=== PATIENT | male | born 1950 | race African-American/Black ===

== ENCOUNTER 2018-08-03 05:59 | Day surgery (SDC) | payer MEDICARE, BC ==
--- NOTE | 2018-07-29 15:28 | HP ---
HISTORY OF PRESENT ILLNESS: Armond Hernandez is a 67-year-old black male who lives in [facility]. He is followed by Dr. Rogers and Dr. Sanchez. The patient on 06/14/2018 had labs with BUN 59, crea tinine 6.21, GFR 10, potassium 5.0. He has been suffering anorexia, lethargy, malaise. He has been advised to initiate dialysis. He wants to see me regarding peritoneal dialysis. He has met with the peritoneal dialysis nurse and is interested in peritoneal dialysis. Plan is to repair his umbilical hernia possibly with mesh, perform laparoscopic peritoneal dialysis catheter placement and left arm AV fistula as an outpatient. He has a fishing trip planned and we will plan this after that trip. Ra calix understands the risks and benefits of surgery and consents. ALLERGIES: Adverse reactions to NAMENDA, mental status changes; DEMEROL, hallucinations; FLU SHOT ca uses swelling on the left side of his body. TOBACCO: None. ALCOHOL: None. MEDICATIONS: Metoprolol 50 mg a day extended release, vitamin B complex, complex vitamins, eye drops , Zetia 10 mg a day, Plaquenil 200 mg a day, iron 325 mg a day, Uloric 40 mg daily, Flomax 0.4 mg a d ay, tramadol p.r.n. pain, Lasix 40 mg twice a day, Breo Ellipta inhaler, fluticasone inhaler, folic a shweta, vitamin B12. PAST SURGICAL HISTORY: Noncontributory. PAST MEDICAL HISTORY: Diabetes, diet controlled, does not take any medications. Hypertension, anemi a. He has a renal cell carcinoma of left, small tumor followed by Urology at [facility]. No resect ion planned immediately. Chronic kidney disease followed by Dr. Rogers. He had a nuclear cardiac stress test with Dr. Brady in January of this year that was normal. REVIEW OF SYSTEMS: Ten point noncontributory. FAMILY HISTORY: Otherwise noncontributory. PHYSICAL EXAMINATION: VITAL SIGNS: 271 pounds, 73 inches, 195/84, 59 heart rate, 99 degrees. HEENT: Unremarkable. LUNGS: Clear to auscultation. CARDIAC: Regular rate and rhythm without murmur or gallop. ABDOMEN: Soft, protuberant, obese. Umbilical hernia, reducible. Diastasis recti. On standing, mag ins inspected and there are no hernias on Valsalva. Testicles are normal. EXTREMITIES: Unremarkable. Palpable radial pulses. Scar, volar medial left forearm from a childhoo d injury procedure. ASSESSMENT AND PLAN: 1. Chronic kidney disease, approaching need for dialysis. We will plan laparoscopic peritoneal dial ysis catheter placement, mesh repair of umbilical hernia open and left arm arteriovenous fistula. He has not had vein mapping. We will explore his veins, perform a fistula if necessary, but we will no t place a prosthetic graft. Risk of operation including infection, bleeding, reoperation and thrombo sis of the fissure discussed. Mechanical problems of the PD catheter discussed. He consents. 2. Chronic kidney disease. 3. Rheumatoid arthritis. 4. Diabetes, diet controlled. 5. Hypertension.
[2018-08-02 08:55] VITALS: BMI 36.6
[2018-08-03 06:50] LABS: #Eosinphils 0.1 thou/uL (0.0-0.7); #Lymphocytes 0.7 thou/uL (1.20-3.40); #Monocytes 0.5 thou/uL (0.11-0.59); #Neutrophils 2.3 thou/uL (1.40-6.50); %Basophils 0.4 % (0.0-1.0); %Eosinophils 1.8 % (0.0-10.0); %Lymphocytes 19.4 % (21.0-51.0); %Monocytes 13.1 % (0.0-10.0); %Neutrophils 65.3 % (42.0-75.0); Hemoglobin 10.3 g/dL (14.0-18.0); Mean Corpuscular HGB CONC 30.1 g/dL (32.0-36.0); Mean Corpuscular Hemoglobin 27.3 pg (27.0-31.0); Mean Corpuscular Volume 90.7 fL (78.0-98.0); Mean Platelet Volume 10.5 fL (7.4-10.4); Platelet Count 106 thou/uL (130-400); RBC Distribution Width 14.4 % (11.5-14.5); Red Blood Cell (RBC) Count 3.76 mill/uL (4.70-6.10); White Blood Cell (WBC) Count 3.6 thou/uL (4.8-10.8)
[2018-08-03] MEDS ORDERED: CEFAZOLIN 2 GM/50 ML BAG ONE (07:03)
[2018-08-03 07:04] LABS: Anion Gap 14 mmol/L (10-20); BUN (Urea Nitrogen) 74 mg/dL (8.4-25.7); Calc. Creatinine Clearance 17 mL/min (70-130); Calcium 7.9 mg/dL (7.8-10.44); Carbon Dioxide 20 mmol/L (23-31); Chloride 112 mmol/L (98-107); Estimated GFR-MDRD 10; Glucose 109 mg/dL (80-115); PLT Morphology Comment Appears Decreased; Potassium 4.7 mmol/L (3.5-5.1); RBC Morphology Normal; Sodium 141 mmol/L (136-145)
[2018-08-03] MEDS ORDERED: Bupivacaine HCl 0.5%/Epinephrine 1:200,000/PF 30 ml Vial ONE (07:04)
[2018-08-03] MEDS ORDERED: Lidocaine 2% PF 5 ML VIAL ONE (07:04)
[2018-08-03] MEDS ORDERED: Heparin 5,000 UNITS/ML VIAL ONE (07:04)
[2018-08-03] MEDS ORDERED: Heparin 10,000 UNITS/1 ML VIAL ONE (07:06)
[2018-08-03] MEDS ORDERED: Protamine Sulfate 50 MG/5 ML VIAL ONE (07:24)
[2018-08-03] MEDS ORDERED: Bupivacaine/Epinephrine 0.25% 30 ML VIAL ONE (07:24)
[2018-08-03] MEDS ORDERED: Fentanyl 100 MCG/2 ML VIAL ONE (07:53)
--- NOTE | 2018-08-03 10:09 | OP ---
DATE OF PROCEDURE: 08/03/2018 PREOPERATIVE DIAGNOSES: Chronic kidney disease, umbilical hernia. POSTOPERATIVE DIAGNOSES: Chronic kidney disease, umbilical hernia. PROCEDURES: Laparoscopic peritoneal dialysis catheter, double cuffed pigtail. Laparoscopic sling smith ture placed to keep the catheter in the pelvis. Umbilical hernia repair with mesh. PVP 4 cm. Left Radhika fistula, 4 mm coronary dilator cephalic vein outflow. Good radial artery caliber. SURGEON: Dr. Oskar Carmichael ANESTHESIA: General. Local 0.25% Marcaine with epinephrine 60 mL mixed with Xylocaine, 10 mL. PROCEDURE: The patient was taken to the operating room where under general anesthesia, abdomen, left upper extremity was prepped with ChloraPrep, draped in routine fashion. Bilateral far lateral subco stal incision made. Pneumoperitoneum to 15 mmHg obtained with the Veress needle placing with a 5 por t and laparoscope inserted. Contralateral subcostal incision made and a 5 port placed under laparosc opic visualization. At the planned exit site, slightly above the umbilical level a stab incision was made and a counter incision made periumbilical above this, an 8 mm port directed in the subcutaneous tissue directed caudally in the subcutaneous tissues into the rectus sheath visualized laparoscopica lly, penetrating the peritoneal cavity caudally, inserting the double cuffed pigtail peritoneal dialy sis catheter in the internal cuff placed in the rectus sheath. While grasping the catheter and the p ort removed. Using the [place] dissector placed through the planned exit site slightly inferior and laterally, the [place] grasper was directed to the counter incision, grasping the peritoneal dialys is catheter and placed external cuff beneath the skin exit site. Subcutaneous tissues approximated w ith 3-0 Monocryl, skin with subdermal 4-0 Monocryl and DermaGlue applied. Biopatch applied. ____ pl aced on the catheter and it was flushed with heparinized saline solution 1000 units per mL, 10 mL and a cap placed. A sling suture was placed to keep the peritoneal dialysis catheter directed into the pelvis. Irrigant and pneumoperitoneum evacuated. Numerous cysts on the liver were noted and video p hotographs used. Pneumoperitoneum evacuated. All this instruments removed and all skin incisions ap proximated with interrupted subdermal 4-0 Vicryl. DermaGlue and sterile dressings applied. Incision was made infraumbilical, carried down the skin and subcutaneous tissue and umbilical hernia defect noted approximately 2.5 cm. The fascial defect dissected free. PVP mesh placed in the preper itoneal space and the fascial defect closed [id number] with interrupted sutures of 0 PDS pop-off s incorporating mesh into the approximation of the fascia closing the subcutaneous tissue, 3-0 Monocr yl, skin with subdermal 4-0 Monocryl and DermaGlue applied. Incision was made in left wrist, carried down skin and subcutaneous tissue longitudinally between th e radial artery and cephalic vein. The patient was given 6000 units heparin intravenously. After ad equate circulation time, the radial artery clamped proximally and distally. Longitudinal arteriotomy made sharply and elongated with Young scissors for a 2.5 cm anastomosis between the end cephalic vei n which had been dissected free and interrogated with coronary dilators without obstruction throughou t its length, passing coronary dilators from a 2 mm to a 4 mm dilator and flushed with heparinized sa line solution. Once anastomosis was completed with 6-0 Prolene, vascular clamps were released and th ere was excellent Doppler signal in the outflow. Good hemostasis noted. The patient was given 50 mg of protamine intravenously by Anesthesia. Subcutaneous tissues approximated with 3-0 Monocryl, skin with subdermal 4-0 Monocryl and DermaGlue applied.
[2018-08-03] MEDS ORDERED: HYDROcodone/Acetaminophen 5/325 mg Tablet ONE (12:06)
[2018-08-03] MEDS ORDERED: Lidocaine 1% PF 5 ML VIAL ONE (16:32)
[2018-08-03] MEDS ORDERED: Ondansetron PF 4 MG/2 ML Vial ONE (16:32)
[2018-08-03] MEDS ORDERED: PROPOFOL 200 MG/20 ML VIAL ONE (16:32)
[2018-08-03] MEDS ORDERED: Glycopyrrolate 0.2 MG/ML 5 ML SYRINGE ONE (16:32)
--- NOTE | 2018-08-06 10:27 | EKG ---
Test Reason : PREOP Blood Pressure : / mmHG Vent. Rate : 061 BPM Atrial Rate : 061 BPM P-R Int : 190 ms QRS Dur : 086 ms QT Int : 462 ms P-R-T Axes : 041 086 078 degrees QTc Int : 465 ms Normal sinus rhythm Normal ECG Confirmed by DR. Zeny MARS ([id number]) on 08/06/2018 10:27:30 AM Referred By: ALFREDO Confirmed By:DR. Zeny MARS
== END 2018-08-03 16:00 | disposition home or self-care (01) ==
LOC: SDC 05:59
PROVIDERS: ATTEND Specialist
PROC: 0WUF0JZ Supplement Abdominal Wall with Synthetic Substitute, Open Approach (ICD-10-PCS; principal; 2018-08-03)
PROC: 031C0ZF Bypass Left Radial Artery to Lower Arm Vein, Open Approach (ICD-10-PCS; 2018-08-03)
PROC: 0WHG43Z Insertion of Infusion Device into Peritoneal Cavity, Percutaneous Endoscopic Approach (ICD-10-PCS; 2018-08-03)
DX: I12.9 Hypertensive chronic kidney disease with stage 1 through stage 4 chronic kidney disease, or unspecified chronic kidney disease (principal); E11.22 Type 2 diabetes mellitus with diabetic chronic kidney disease; N18.9 Chronic kidney disease, unspecified; K42.9 Umbilical hernia without obstruction or gangrene; Z88.5 Allergy status to narcotic agent; Z88.8 Allergy status to other drugs, medicaments and biological substances; Z88.7 Allergy status to serum and vaccine; Z79.899 Other long term (current) drug therapy; M06.9 Rheumatoid arthritis, unspecified; Z79.82 Long term (current) use of aspirin; E66.9 Obesity, unspecified; Z68.36 Body mass index [BMI] 36.0-36.9, adult
CPT/HCPCS: 36415; 80048; 85025; 93005; 93010; J0131; J0670; J1644; J2001; J2405; J2704; J2720; J3010

== ENCOUNTER 2018-08-18 09:14 | Outpatient (CLI) | payer MEDICARE, BC ==
--- NOTE | 2018-08-18 09:54 | RAD ---
TWO VIEW CHEST: COMPARISON: 12/17/2017. INDICATION: Chronic kidney disease. FINDINGS: The cardiac silhouette remains enlarged with adjacent patchy density of the mid left lung zone. Ther e is mild vascular prominence. Vascular calcification is again seen. IMPRESSION: 1. Persistence of enlargement of cardiac silhouette with adjacent patchy parenchymal density of the left mid lung zone. 2. Evidence of edema. POS: TPC
== END 2018-08-18 09:15 | disposition home or self-care (01) ==
LOC: BICRAD 09:14
PROVIDERS: ATTEND Internal Medicine Nephrology
DX: N18.4 Chronic kidney disease, stage 4 (severe) (principal); J98.4 Other disorders of lung; R60.9 Edema, unspecified
CPT/HCPCS: 71046

== ENCOUNTER 2018-10-04 06:14 | Day surgery (SDC) | payer MEDICARE, BC ==
[2018-10-03 13:10] VITALS: BMI 34.5
--- NOTE | 2018-10-03 21:13 | HP ---
HISTORY OF PRESENT ILLNESS: This is a 68-year-old male, referred to me for a colonoscopy for colon cancer. The patient also had a positive Cologuard testing and also history of colonoscopy 5 years ago. At present time, no specific symptoms. No abdominal pain. No hematochezia or melena. The patient already had a colonoscopy for colon cancer screening and also had a history of colon polyps. MEDICAL ILLNESSES: 1. Hypertension. 2. Diabetes. 3. Hyperlipidemia. 4. Obesity. 5. Chronic kidney disease, on peritoneal dialysis. 6. History of left renal cell carcinoma, being seen at the [facility] off and on. ALLERGIES: 1. DEMEROL. 2. NAMENDA. 3. PNEUMOCOCCAL VACCINE. PHYSICAL EXAMINATION: VITAL SIGNS: Pulse is 70, blood pressure 130/80. HEENT: Conjunctivae clear. CARDIOVASCULAR SYSTEM: First and second heart sounds heard. LUNGS: Clear to auscultation. ABDOMEN: Soft. No organomegaly. No tenderness. No masses. Bowel sounds normal. ADMITTING DIAGNOSES: Colon cancer screening, history of colon polyps. Job ID: [id number] [facility]
[2018-10-04 07:45] LABS: Anion Gap 15 mmol/L (10-20); BUN (Urea Nitrogen) 57 mg/dL (8.4-25.7); Calc. Creatinine Clearance 14 mL/min (70-130); Calcium 7.7 mg/dL (7.8-10.44); Carbon Dioxide 30 mmol/L (23-31); Chloride 101 mmol/L (98-107); Estimated GFR-MDRD 8; Glucose 126 mg/dL (80-115); Sodium 143 mmol/L (136-145)
[2018-10-04 07:59] LABS: Potassium 2.9 mmol/L (3.5-5.1)
[2018-10-04] MEDS ORDERED: PROPOFOL 200 MG/20 ML VIAL ONE (13:47)
--- NOTE | 2018-10-04 16:38 | OP ---
DATE OF PROCEDURE: 10/04/2018 PROCEDURE PERFORMED: Colonoscopy. PREOPERATIVE DIAGNOSIS: A 68-year-old male with positive Cologuard, underwent colonoscopy for colon cancer screening. The patient also had previous colonoscopy, polypectomy many years ago. POSTOPERATIVE DIAGNOSES: 1. Large hemorrhoids. 2. Very redundant colon, and the exam was technically difficult because of the redundant colon. DESCRIPTION OF PROCEDURE: The patient was placed on his left lateral position and was given sedation by Anesthesia Department. A rectal exam was done. The scope was advanced into the rectum. The patient had hemorrhoids. No other lesions felt. A Pentax video colonoscope was introduced into the rectum and advanced all the way into the cecum. In the ileocecal area, cecum, ascending colon, no pathology seen. In the hepatic flexure, no pathology seen. In the transverse colon, splenic flexure, descending colon, sigmoid colon, no pathology seen. Retroflexion of scope in the rectum showed large hemorrhoids. DISCHARGE PLANNING: A 68-year-old male, who came for colonoscopy for colon cancer screening. The patient also had positive Cologuard testing in the past. The patient underwent colonoscopy and there was no pathology seen. However, the exam was somewhat difficult because of the redundant colon. The patient had hemorrhoids. No other pathology seen. DISCHARGE RECOMMENDATIONS: 1. The patient is advised to call me for abdominal pain, hematochezia. 2. In the absence of any other symptoms, come back to me in 2 weeks. Job ID: [id number]
== END 2018-10-04 09:55 | disposition home or self-care (01) ==
LOC: SDC 06:14
PROVIDERS: ATTEND Internal Medicine Gastroenterology
PROC: 0DJD8ZZ Inspection of Lower Intestinal Tract, Via Natural or Artificial Opening Endoscopic (ICD-10-PCS; principal; 2018-10-04)
DX: Z12.11 Encounter for screening for malignant neoplasm of colon (principal); K64.9 Unspecified hemorrhoids; Q43.8 Other specified congenital malformations of intestine; I12.9 Hypertensive chronic kidney disease with stage 1 through stage 4 chronic kidney disease, or unspecified chronic kidney disease; E11.22 Type 2 diabetes mellitus with diabetic chronic kidney disease; N18.9 Chronic kidney disease, unspecified; E78.5 Hyperlipidemia, unspecified; E66.9 Obesity, unspecified; Z68.34 Body mass index [BMI] 34.0-34.9, adult; Z99.2 Dependence on renal dialysis; Z88.5 Allergy status to narcotic agent; Z88.7 Allergy status to serum and vaccine; Z88.8 Allergy status to other drugs, medicaments and biological substances; Z86.010 Personal history of colon polyps; Z79.82 Long term (current) use of aspirin; Z79.899 Other long term (current) drug therapy
CPT/HCPCS: 80048; G0121; 36415; J2704

== ENCOUNTER 2018-10-13 00:14 | Emergency (ER) | payer MEDICARE, BC ==
[2018-10-13 03:00] LABS: Anion Gap 17 mmol/L (10-20); BUN (Urea Nitrogen) 60 mg/dL (8.4-25.7); Calc. Creatinine Clearance 0 mL/min (70-130); Calcium 8.7 mg/dL (7.8-10.44); Carbon Dioxide 27 mmol/L (23-31); Chloride 102 mmol/L (98-107); Estimated GFR-MDRD 8; Glucose 173 mg/dL (80-115); Potassium 3.6 mmol/L (3.5-5.1); Sodium 142 mmol/L (136-145)
[2018-10-13 12:01] LABS: #Eosinphils 0.1 thou/uL (0.0-0.7); #Lymphocytes 0.9 thou/uL (1.20-3.40); #Monocytes 0.6 thou/uL (0.11-0.59); #Neutrophils 3.3 thou/uL (1.40-6.50); %Basophils 0.4 % (0.0-1.0); %Eosinophils 1.4 % (0.0-10.0); %Monocytes 12.9 % (0.0-10.0); %Neutrophils 66.3 % (42.0-75.0); Hemoglobin 11.7 g/dL (14.0-18.0); Mean Corpuscular HGB CONC 29.5 g/dL (32.0-36.0); Mean Corpuscular Hemoglobin 27.6 pg (27.0-31.0); Mean Corpuscular Volume 93.7 fL (78.0-98.0); Mean Platelet Volume 10.4 fL (7.4-10.4); Platelet Count 150 thou/uL (130-400); RBC Distribution Width 16.8 % (11.5-14.5); Red Blood Cell (RBC) Count 4.25 mill/uL (4.70-6.10); White Blood Cell (WBC) Count 4.9 thou/uL (4.8-10.8)
[2018-10-13 12:23] LABS: Anisocytosis SLIGHT = 6-15 cells (100X) (0-5/hpf); Hypochromia SLIGHT = 6-15 cells (100X) (0-5/hpf); MDiff Complete? YES; Ovalocytes SLIGHT = 2-5 cells (100X) (0-1/hpf); Platelet Morphology Comment Appears Adequate; Polychromasia SLIGHT = 2-3 cells (100X) (0-2/hpf)
== END 2018-10-13 03:47 | disposition home or self-care (01) ==
LOC: ERS 00:14
DX: T85.611A Breakdown (mechanical) of intraperitoneal dialysis catheter, initial encounter (principal); I12.0 Hypertensive chronic kidney disease with stage 5 chronic kidney disease or end stage renal disease; N18.6 End stage renal disease; E11.22 Type 2 diabetes mellitus with diabetic chronic kidney disease; K21.9 Gastro-esophageal reflux disease without esophagitis; E78.5 Hyperlipidemia, unspecified; M10.9 Gout, unspecified; Z79.899 Other long term (current) drug therapy; Z79.82 Long term (current) use of aspirin
CPT/HCPCS: 36415; 80048; 85025

== ENCOUNTER 2018-10-13 11:10 | Day surgery (SDC) | payer MEDICARE, BC ==
[~2018-10-13 11:10] MED LIST: Bupivacaine HCl 0.5%/Epinephrine 1:200,000/PF 30 ml Vial ONE; Heparin 10,000 UNITS/1 ML VIAL ONE; Lidocaine 2% PF 5 ML VIAL ONE; Sodium Chloride 0.9% 0 ML ONE
[2018-10-13] MEDS ORDERED: CEFAZOLIN 2 GM/50 ML BAG ONE (12:13)
[2018-10-13] MEDS ORDERED: Fentanyl 100 MCG/2 ML VIAL ONE (12:38)
[2018-10-13] MEDS ORDERED: Midazolam HCl 2 mg/2 ml Vial ONE (12:38)
[2018-10-13] MEDS ORDERED: Sodium Chloride 0.9% 10 ML ONE (12:56)
--- NOTE | 2018-10-13 12:56 | HP ---
HISTORY OF PRESENT ILLNESS: Armond Hernandez is a 68-year-old male patient, undergoing peritoneal dialysis. I placed a laparoscopic peritoneal dialysis catheter in July as well as a left Radhika fistula. He never required a dialysis catheter. He is followed by Dr. Rogers, development technical lead and Dr. Fontaine, Primary Care. He has associated with [facility] in [place]. He is accompanied today by his and son. The patient presented to the emergency room last night because of swelling in his right scrotum. He states that his scrotal swelling is much better, although not completely resolved by this time. When I saw him initially, we examined him for hernia, did not appreciate one. After thorough discussion with the patient, his family and his development technical lead, Dr. Rogers, we have decided to proceed with placement of an outpatient hemodialysis catheter today, initiation of outpatient hemodialysis at [facility] and plan robot mesh repair of right inguinal hernia. Possible left inguinal hernia, pending robot laparoscopic findings. He understands the risks and benefits of this procedures and consents. He wants to return to peritoneal dialysis and this should not be a problem. After adequate healing after his robot mesh inguinal hernia repair, possible left, he should not be able to have his hemodialysis catheter removed in 2 to 3 weeks and return to peritoneal dialysis about a week and a half post hernia repair. MEDICATIONS: 1. Aspirin 81 mg a day. 2. Crestor 20 mg a day. 3. Amlodipine 10 mg a day. 4. Clonidine 0.2 mg a day. 5. Zetia 5 mg a day. 6. Alphagan drops. 7. Vitamin B12 daily. 8. Calcium daily. 9. Metoprolol succinate ER daily. 10. Plaquenil 200 mg a day. 11. Iron daily. 12. Uloric acid 40 mg a day. 13. Flomax 0.4 mg a day. 14. Tramadol p.r.n. pain. 15. Lasix p.r.n. 16. Folic acid. PAST MEDICAL HISTORY: Diabetes mellitus, hypertension, hyperlipidemia. PAST SURGICAL HISTORY: ORIF of orthopedic ligamentous tears, knee replacement, bilateral laparoscopic PD catheter, umbilical hernia repair, and left arm Radhika fistula on August 03, 2018. FAMILY HISTORY: Diabetes, hypertension, and stroke. ALLERGIES: DEMEROL, NAMENDA, AND PREVNAR. SOCIAL HISTORY: The patient is retired, . REVIEW OF SYSTEMS: Ten-point noncontributory. PHYSICAL EXAMINATION: VITAL SIGNS: Weight 116 kg. Blood pressure 151/79, heart rate 60, respiratory rate 20, and temperature 98.5 degrees. HEAD, EARS, EYES, NOSE, AND THROAT: Unremarkable. LUNGS: Clear to auscultation. CARDIAC: Regular rate and rhythm without murmur or gallop. ABDOMEN: Soft. PD catheter in place. Right groin full, hernia on exam. Left groin without appreciable hernia. Testicles normal. EXTREMITIES: Without edema. NEUROLOGICAL: Intact. No focal deficit. Left Radhika fistula, good thrill and bruit. ASSESSMENT AND PLAN: 1. End-stage renal disease, peritoneal dialysis status. We would recommend placement of a hemodialysis catheter today in outpatient dialysis beginning tomorrow at [facility]. I have spoken to Dr. Stephens about arrangements for this. 2. Right inguinal hernia. Plan robot laparoscopic hernia repair with mesh, right possible left as an outpatient in the next available date. He understands the risks and benefits and consents. Job ID: [id number]
[2018-10-13] MEDS ORDERED: Acetaminophen 500 MG TAB ONE (13:53)
--- NOTE | 2018-10-13 13:54 | RAD ---
CHEST 1 VIEW: HISTORY: Catheter placement. COMPARISON: 08/18/2018. FINDINGS: Cardiac silhouette is magnified, enlarged, and partially obscured by patchy bibasilar infiltrates. P ulmonary vasculature is slightly engorged. Mediastinum midline with aortic calcification. The tip o f a large-caliber dual-lumen dialysis-type catheter overlies the superior vena cava. No evidence of pneumothorax. IMPRESSION: 1. Right internal jugular dialysis catheter is in good radiographic position. 2. Radiographic findings of congestive heart failure. POS: FOX
--- NOTE | 2018-10-13 15:55 | OP ---
DATE OF PROCEDURE: 10/13/2018 PREOPERATIVE DIAGNOSES: End-stage renal disease, peritoneal dialysis status, right inguinal hernia, immature left Radhika fistula in need of dialysis access until his hernia is repaired. POSTOPERATIVE DIAGNOSES: End-stage renal disease, peritoneal dialysis status, right inguinal hernia, immature left Radhika fistula in need of dialysis access until his hernia is repaired. PROCEDURES PERFORMED: Right IJ cuffed tunneled hemodialysis catheter, AngioDynamics pre-curved, ultrasound fluoroscopy used. ANESTHESIA: TIVA, local of 0.5% Marcaine with epinephrine, 30 mL mixture of 2% Xylocaine. DESCRIPTION OF PROCEDURE: The patient was taken to the operating room, where under intravenous sedation, neck and chest were prepared with ChloraPrep and draped in routine fashion. Local anesthetic mixture was infiltrated into the skin and subcutaneous tissue about the operative site. Using ultrasound guidance, the right internal jugular vein was cannulated with a trocar catheter. J-wire was threaded, trocar catheter was removed. Skin was incised and enlarged sharply. Stab incision was made over the right chest. Using a tunneling device, pre-curved AngioDynamics cuffed-tunneled hemodialysis catheter tunneled between the two incisions, placing the fabric cuff beneath the skin exit site and it was secured with two interrupted suture of 3-0 nylon. Sterile dressings were applied. Small and medium size dilators were placed over the J-wire and the internal jugular vein was removed. Dilator and Peel-Away sheath was placed over the J-wire into the superior vena cava. Dilator and J-wire were removed, catheter was placed through the Peel-Away sheath. Peel-Away sheath was removed. Fluoroscopically, the catheter was noted to be in good position. The platysma was approximated with 4-0 Monocryl, skin with subdermal 4-0 Monocryl and [place] glue and sterile dressings were applied. Each port aspirated blood, flushed with saline solution and heparinized saline solution with 1000 units of heparin per mL indicating volume of the port. Fluoroscopic images revealed good line placement. Job ID: [id number]
== END 2018-10-13 15:48 | disposition home or self-care (01) ==
LOC: EEVIPCON → SDC 11:10
PROVIDERS: ATTEND Specialist
PROC: 05HM33Z Insertion of Infusion Device into Right Internal Jugular Vein, Percutaneous Approach (ICD-10-PCS; principal; 2018-10-13)
DX: I12.0 Hypertensive chronic kidney disease with stage 5 chronic kidney disease or end stage renal disease (principal); E11.22 Type 2 diabetes mellitus with diabetic chronic kidney disease; N18.6 End stage renal disease; K40.90 Unilateral inguinal hernia, without obstruction or gangrene, not specified as recurrent; E78.5 Hyperlipidemia, unspecified; Z79.82 Long term (current) use of aspirin; Z79.899 Other long term (current) drug therapy; Z88.5 Allergy status to narcotic agent; Z88.7 Allergy status to serum and vaccine; Z88.8 Allergy status to other drugs, medicaments and biological substances; Z99.2 Dependence on renal dialysis
CPT/HCPCS: 36558; 71045; 80048; 85025; C1752; C1769; 36415; 99284; J0670; J1642; J1644; J2001; J2250; J3010

== ENCOUNTER 2018-10-21 05:53 | Day surgery (SDC) | payer MEDICARE, BC ==
[2018-10-20 14:57] VITALS: BMI 34.4
[2018-10-21] MEDS ORDERED: Famotidine/PF 20 mg/2ml Vial ONE (06:25)
[2018-10-21] MEDS ORDERED: Fentanyl 100 MCG/2 ML VIAL ONE ×2 (06:25→10:08)
[2018-10-21] MEDS ORDERED: Bupivacaine HCl 0.5%/Epinephrine 1:200,000/PF 30 ml Vial ONE (06:33)
[2018-10-21 07:11] LABS: Mean Corpuscular Hemoglobin 27.1 pg (27.0-31.0); Mean Corpuscular Volume 90.3 fL (78.0-98.0); Platelet Count 135 thou/uL (130-400); RBC Distribution Width 16.3 % (11.5-14.5); Red Blood Cell (RBC) Count 4.42 mill/uL (4.70-6.10); White Blood Cell (WBC) Count 4.6 thou/uL (4.8-10.8)
[2018-10-21 07:21] LABS: Anion Gap 13 mmol/L (10-20); BUN (Urea Nitrogen) 37 mg/dL (8.4-25.7); Calc. Creatinine Clearance 19 mL/min (70-130); Calcium 8.4 mg/dL (7.8-10.44); Carbon Dioxide 27 mmol/L (23-31); Chloride 101 mmol/L (98-107); Estimated GFR-MDRD 12; Glucose 136 mg/dL (80-115); Sodium 137 mmol/L (136-145)
[2018-10-21] MEDS ORDERED: hydrALAZINE 20 MG/ML VIAL ONE (07:41)
--- NOTE | 2018-10-21 10:56 | OP ---
DATE OF PROCEDURE: 10/21/2018 PREOPERATIVE DIAGNOSES: End-stage renal disease, peritoneal dialysis status, previous umbilical hernia repair with mesh, now with a right inguinal hernia occurring during peritoneal dialysis, and hemodialysis catheter previously placed for hemodialysis. POSTOPERATIVE DIAGNOSES: End-stage renal disease, peritoneal dialysis status, previous umbilical hernia repair with mesh, now with a right inguinal hernia occurring during peritoneal dialysis, and hemodialysis catheter previously placed for hemodialysis. PROCEDURE PERFORMED: Robotic 3DMax mesh repair of indirect right inguinal hernia. ANESTHESIA: General, local 0.5% Marcaine with epinephrine. DESCRIPTION OF PROCEDURE: The patient was taken to the operating room, where under general anesthesia, abdomen was prepared with ChloraPrep and draped in routine fashion. Nice catheter was placed at the beginning of the procedure and removed at the end. Local anesthetic was infiltrated in the skin and subcutaneous tissue about each port site. Supraumbilical incision was made off midline right and pneumoperitoneum to 15 mmHg obtained with a Veress needle, replaced with a 11 mm balloon port. Once this was inserted, the right and left lateral abdominal mid incision was made and 8 mm port was placed. A robot was docked. Robotic inguinal hernia undertaken. Left pelvis was without evident hernia. Peritoneal flap dissected free from the anterosuperior iliac spine, right to the midline, dropping the flap dissecting the hernia sac free from the hernia contents, reducing cord lipoma, stripping the contents, dissecting contents from the cord structures, taking down the cremasteric fibers using cautery for hemostasis. Once a flap was created and the cord structures cleared for least 8 cm, inadequate dissection mediolaterally performed visualizing this Alcides ligament and dissecting slightly posterior to this. 3DMax large mesh properly oriented covering the inguinal floor and the cord structures for least 8 centimeters. Once the mesh was properly positioned, it was secured to Alcides ligament with 2-0 Vicryl and the anterior abdominal wall lateral to the epigastric vessels with 2-0 Vicryl loosely approximated. Once this was completed, the peritoneal flap was closed with continuous suture of 2-0 V-Loc suture. No peritoneal defects were noted. Good hernia repair appreciated. Pneumoperitoneum evacuated. Nice catheter removed. All skin incisions were approximated with a subdermal 4-0 Monocryl and [place] glue applied. Job ID: [id number]
[2018-10-21] MEDS ORDERED: Heparin 10,000 UNITS/ 10 ML VIAL ONE ×2 (11:42→12:04)
[2018-10-21] MEDS ORDERED: Acetaminophen 500 MG TAB ONE (11:59)
== END 2018-10-21 12:29 | disposition home or self-care (01) ==
LOC: SDC 05:53
PROVIDERS: ATTEND Specialist
PROC: 0YU54JZ Supplement Right Inguinal Region with Synthetic Substitute, Percutaneous Endoscopic Approach (ICD-10-PCS; principal; 2018-10-21)
DX: K40.90 Unilateral inguinal hernia, without obstruction or gangrene, not specified as recurrent (principal); D17.6 Benign lipomatous neoplasm of spermatic cord; I12.0 Hypertensive chronic kidney disease with stage 5 chronic kidney disease or end stage renal disease; E11.22 Type 2 diabetes mellitus with diabetic chronic kidney disease; N18.6 End stage renal disease; E78.5 Hyperlipidemia, unspecified; Z79.82 Long term (current) use of aspirin; Z79.899 Other long term (current) drug therapy; Z88.5 Allergy status to narcotic agent; Z88.7 Allergy status to serum and vaccine; Z88.8 Allergy status to other drugs, medicaments and biological substances; Z99.2 Dependence on renal dialysis; Z98.890 Other specified postprocedural states
CPT/HCPCS: 49650; 80048; 85027; C1781; J0131; J0360; J0670; J1644; J3010; J3370; S0028

== ENCOUNTER 2019-11-10 09:57 | Day surgery (SDC) | payer MEDICARE, BC ==
--- NOTE | 2019-11-07 14:06 | HP ---
HISTORY OF PRESENT ILLNESS: Armond Hernandez presents for the right breast mass. He had mammography and ultrasound revealed insufficient disease. Ultrasound-guided biopsy of this cystic mass revealed benign findings. However, the mass has reoccurred and is bothersome to him. Pathology reveals a large cyst. Plan at this time is excisional biopsy. The patient is on peritoneal dialysis. He has a left Radhika fistula that is thrombosed. Once I placed this in July 2018, at the same time, I placed a laparoscopic peritoneal dialysis catheter, umbilical hernia repair with mesh. JVP 4 cm in the left Radhika fistula. Dr. Troy performed colonoscopy in 2018, was unremarkable except for hemorrhoids. The patient has had recurrence of his umbilical hernia. He has retained fluid in his abdominal cavity. On 10/21/2018, I performed robotic 3D Max mesh repair of indirect right inguinal hernia. The patient was recently sent to Dr. Streeter by the dialysis unit to see if they can do intervention on his left Radhika fistula. Dr. Streeter told him he could not resolve this and did not do any interventional procedure. Plan at this time is to resect the right breast mass under general anesthesia and under the same anesthetic, plan left arm more proximal fistula. He understands risks and benefits and consents. Umbilical hernia. He will observe this for now. It is asymptomatic, is not causing any problem. This is recurrent umbilical hernia. I previously repaired this with mesh. ALLERGIES: NAMENDA, DEMEROL CAUSES HALLUCINATIONS. SOCIAL HISTORY: Tobacco, none. Alcohol, none. MEDICATIONS: 1. Metoprolol. 2. Vitamin B complex. 3. Vitamin. 4. Zetia. 5. Plaquenil. 6. Iron. 7. Uloric acid. 8. Flomax. 9. Tramadol. 10. Lasix. 11. Inhalers. PAST SURGICAL HISTORY: As noted above. PAST MEDICAL HISTORY: Obesity, diabetes, hypertension, anemia, history of renal cell carcinoma, left flank robotic nephrectomy. This has been followed medically. Bilateral knee replacements. PHYSICAL EXAMINATION: VITAL SIGNS: Weight 272 pounds, height 73 inches, BMI 35, blood pressure 146/91, pulse 60, temperature 97.7 degrees. HEAD, EARS, EYES, NOSE, AND THROAT: Unremarkable. LUNGS: Clear to auscultation. CARDIAC: Regular rate and rhythm without murmur or gallop. ABDOMEN: Soft. Umbilical hernia. Fluid wave present in the abdomen. Peritoneal dialysis catheter present. Pulsatile left wrist prominent from previous Radhika fistula. BREASTS: Axilla without masses. Left breast without masses. Right breast reveals a mass, cystic in nature, retroareolar about 5 cm in diameter. ASSESSMENT AND PLAN: 1. Recurrent right breast cyst, plan excision. 2. Failed fistula left wrist. He has not had vein mapping. Plan, left arm primary fistula more proximal. 3. Recurrent umbilical hernia with retained fluid, it is asymptomatic, we will observe for now. 4. Peritoneal dialysis catheter, undergoing peritoneal dialysis at home. 5. Obesity. 6. History of left nephrectomy for renal cell carcinoma with temporary hemodialysis catheter since removed and he is going to return back to peritoneal dialysis. Job ID: [id number]
[2019-11-09 11:50] VITALS: BMI 35.1
[~2019-11-10 09:57] MED LIST changes: +EPHEDRINE 25 MG/5 ML SYRINGE ONE; -Heparin 10,000 UNITS/1 ML VIAL ONE; -Lidocaine 2% PF 5 ML VIAL ONE; +PROPOFOL 200 MG/20 ML VIAL ONE; -Sodium Chloride 0.9% 0 ML ONE; +diphenhydrAMINE 50 MG/ML VIAL ONE
[2019-11-10] MEDS ORDERED: Acetaminophen 500 MG TAB ONE (10:15)
[2019-11-10] MEDS ORDERED: Lidocaine 2% w/Epinephrine 1:200K 20 ML VIAL ONE (10:37)
[2019-11-10] MEDS ORDERED: Bupivacaine 0.25% HCL 30 ML VIAL ONE (10:37)
[2019-11-10 10:40] LABS: #Eosinphils 0.1 thou/uL (0.0-0.7); #Lymphocytes 0.8 thou/uL (1.20-3.40); #Monocytes 0.4 thou/uL (0.11-0.59); #Neutrophils 2.5 thou/uL (1.40-6.50); %Basophils 0.9 % (0.0-1.0); %Eosinophils 1.6 % (0.0-10.0); %Lymphocytes 20.4 % (21.0-51.0); %Monocytes 11.6 % (0.0-10.0); %Neutrophils 65.5 % (42.0-75.0); Hemoglobin 11.3 g/dL (14.0-18.0); Mean Corpuscular Volume 96.9 fL (78.0-98.0); Mean Platelet Volume 9.3 fL (7.4-10.4); Platelet Count 121 thou/uL (130-400); RBC Distribution Width 14.4 % (11.5-14.5); Red Blood Cell (RBC) Count 3.54 mill/uL (4.70-6.10); White Blood Cell (WBC) Count 3.8 thou/uL (4.8-10.8)
[2019-11-10] MEDS ORDERED: Protamine Sulfate 50 MG/5 ML VIAL ONE (10:55)
[2019-11-10] MEDS ORDERED: Heparin 5,000 UNITS/ML VIAL ONE (10:55)
[2019-11-10] MEDS ORDERED: Ioversol 68 % 50 ML VIAL ONE (10:56)
[2019-11-10] MEDS ORDERED: Fentanyl 100 MCG/2 ML VIAL ONE ×2 (10:57→11:01)
[2019-11-10 11:02] LABS: Anion Gap 18 mmol/L (10-20); BUN (Urea Nitrogen) 81 mg/dL (8.4-25.7); Calc. Creatinine Clearance 6 mL/min (70-130); Calcium 7.7 mg/dL (7.8-10.44); Carbon Dioxide 27 mmol/L (23-31); Chloride 102 mmol/L (98-107); Estimated GFR-MDRD 3; Glucose 89 mg/dL (83-110); Potassium 4.2 mmol/L (3.5-5.1); Sodium 143 mmol/L (136-145)
[2019-11-10] MEDS ORDERED: Ondansetron HCl/PF 4 MG/2 ML Vial IVP PRN (13:35)
[2019-11-10] MEDS ORDERED: HYDROcodone/Acetaminophen 5/325 mg Tablet ONE (15:38)
--- NOTE | 2019-11-10 16:35 | OP ---
DATE OF PROCEDURE: 11/10/2019 PREOPERATIVE DIAGNOSES: 1. Right breast mass cyst, refractory to aspiration. 2. End-stage renal disease, on peritoneal dialysis status. 3. Thrombosed Radhika fistula, wrist, in the past. POSTOPERATIVE DIAGNOSES: 1. Right breast mass cyst, refractory to aspiration. 2. End-stage renal disease, on peritoneal dialysis status. 3. Thrombosed Radhika fistula, wrist, in the past. PROCEDURES PERFORMED: 1. Excision of right breast mass with a #10 NOAH drain. 2. Left arm primary fistula, perforating branch, antecubital vein (actually originating from off the cephalic vein more proximally upper arm). Outflow proximal radial artery, which is a very large communication to the basilic vein, but anatomically no significant flow. The cephalic vein in the upper arm calibrated to a 4-mm coronary dilator. ANESTHESIA: General, regional, and local. DESCRIPTION OF PROCEDURE: The patient was taken to the operating room where under general anesthesia and left arm regional anesthesia, right breast and left upper extremity were prepared with ChloraPrep and draped in routine fashion. Incision made in the infra-areolar right breast, carried down to skin and subcutaneous tissue, and a large breast mass, cystic in nature, excised, submitted to Pathology. Hemostasis was gained with the cautery. Subcutaneous tissue was approximated with 3-0 Monocryl, after a #10 NOAH drain placed, secured with 3-0 nylon suture. Sterile dressings applied. Local anesthetic was infiltrated in the skin and subcutaneous tissue and breast tissue. Dermabond applied. The patient had a prior wrist Radhika fistula, that is thrombosed years ago. He is peritoneal dialysis status. Incision was made in the proximal volar forearm below the antecubital fossa, carried down through skin and subcutaneous tissue. Antecubital vein dissected free as a good caliber. The perforating branch antecubital vein originated from the cephalic vein in the distal upper arm. It was dissected free and branches divided between clips and 4-0 silk ties and spatulated over branch points and interrogated with coronary dilators, passing coronary dilators from 2 mm to 4 mm coronary dilator out the cephalic vein upper arm without obstruction. There was a branch to the cephalic vein that was clipped. There was communication in the basilic vein more distal, but preferential blood flow was through the upper arm cephalic vein. The patient given 6000 units of heparin intravenously. After adequate circulation time, the proximal radial artery was of excellent large size and clamped proximally and distally and a longitudinal arteriotomy was made sharply, elongated with Young scissors for 2.5 cm anastomosis, created between the end perforating branch of the cephalic vein to the proximal radial artery with continuous suture of 6-0 Prolene, releasing clamps on a good flow in the upper arm fistula without any significant flow in the basilic vein due to anatomic considerations. Good hemostasis noted. The patient given 50 mg of protamine intravenously by Anesthesia. Good hemostasis noted. Subcutaneous tissue was approximated with 3-0 Monocryl, skin with subdermal 4-0 Monocryl, and [place] glue applied. Job ID: [id number]
--- NOTE | 2019-11-13 09:01 | EKG ---
Test Reason : PREOP Blood Pressure : / mmHG Vent. Rate : 057 BPM Atrial Rate : 057 BPM P-R Int : 190 ms QRS Dur : 088 ms QT Int : 468 ms P-R-T Axes : 054 058 075 degrees QTc Int : 455 ms Sinus bradycardia with Premature supraventricular complexes Nonspecific T wave abnormality Abnormal ECG Confirmed by PRICE LAKE ([id number]) on 11/13/2019 9:01:27 AM Referred By: ALFREDO Confirmed By:PRICE LAKE
== END 2019-11-10 17:55 | disposition home or self-care (01) ==
LOC: SDC 09:57
PROVIDERS: ATTEND Specialist
PROC: 0HBT0ZZ Excision of Right Breast, Open Approach (ICD-10-PCS; principal; 2019-11-10)
PROC: 03150ZD Bypass Right Axillary Artery to Upper Arm Vein, Open Approach (ICD-10-PCS; 2019-11-10)
DX: N60.31 Fibrosclerosis of right breast (principal); T82.868A Thrombosis due to vascular prosthetic devices, implants and grafts, initial encounter; I12.0 Hypertensive chronic kidney disease with stage 5 chronic kidney disease or end stage renal disease; E11.22 Type 2 diabetes mellitus with diabetic chronic kidney disease; N18.6 End stage renal disease; D63.1 Anemia in chronic kidney disease; K42.9 Umbilical hernia without obstruction or gangrene; E66.9 Obesity, unspecified; Z68.35 Body mass index [BMI] 35.0-35.9, adult; Z88.1 Allergy status to other antibiotic agents; Z88.5 Allergy status to narcotic agent; Z88.7 Allergy status to serum and vaccine; Z88.8 Allergy status to other drugs, medicaments and biological substances; Z79.899 Other long term (current) drug therapy
CPT/HCPCS: 36415; 80048; 85025; 88307; 93005; 93010; J0670; J0690; J1200; J1644; J2704; J2720; J3010; Q9967; S0020

== ENCOUNTER 2020-02-01 08:45 | Outpatient (CLI) | payer MEDICARE, BC ==
--- NOTE | 2020-02-01 13:46 | ULT ---
GALLBLADDER ULTRASOUND: 02/01/20 HISTORY: Abdominal pain. End-stage renal disease. Real time imaging of the right upper quadrant shows an abnormal heterogeneous architecture to the junior er. There are multiple cyst identified, many of which are too small to characterize and they are irre gular in shape. The liver appears enlarged measuring 24 cm in length. The right kidney measures 18 cm in length and has multiple cysts and the appearance of a polycystic type kidney. Images of what appe ar to be the gallbladder do not show any definite stones. There appears to be some sludge. Common jatin t is difficult to identify and measures in the 8 mm range. Pancreas is completely obscured. IMPRESSION: 1. Very heterogeneous echotexture to the liver with multiple cysts, some of which are irregular in shape and very small. This in conjunction with the polycystic appearing kidney would suggest that this probably represents polycystic liver disease in addition to polycystic kidney. 2. The gallbladder is partially obscured related to bowel gas. There appears to be some sludge b ut no stones identified. The common duct is borderline to slightly dilated. It measures in the 7 to 8 mm range. POS: [facility]
--- NOTE | 2020-02-01 15:36 | CT ---
CT ABDOMEN AND PELVIS WITH IV CONTRAST: 02/01/20 INDICATIONS: Mid abdominal pain. End-stage renal disease. Known umbilical hernia. On peritoneal dialysis. Comparison made to prior CT chest which did include images through the upper abdomen from 12/18/17. No other CT abdomen and pelvis exams. FINDINGS: Images through the lung bases and lower chest show minimal atelectasis in the left posterior lung bas e. The breasts are partially imaged and there is abnormal mass-like density in the retroareolar regio n of the left breast which measures up to 6 cm. This is new when compared to the chest CT of 12/18/17. There is also increased mass-like density in the subareolar region of the right breast which is inco mpletely imaged and measures up to 3 cm on today's study. Images through the upper abdomen show numerous hepatic cystic lesions. These were described on the CT of 12/18/17. The largest of these in the mid liver measures 4 cm and slightly displaces the portal ve ins. There are too numerous to count tiny cystic lesions seen throughout the liver. The spleen and pancreas unremarkable. Stomach and duodenum unremarkable. Adrenal glands unremarkable. Patient is post left nephrectomy. The right kidney shows numerous cystic lesions. These are too numerous to count and the largest cysti c lesions measuring in the 3 to 4 cm range. No hydronephrosis. The urinary bladder is contracted. There is an umbilical hernia. There is a fluid filled hernia sac within the subcutaneous tissues micah uring 3.3 cm. Small bowel loops show nonspecific distention and/or opacified by oral contrast. No dilatation or alek dence of obstruction. Colon is unremarkable. Nondistention inhibits adequate evaluation of the colon wall. Transverse colon shows suggestion of mild mural thickening but is poorly distended. Aorta normal caliber with atherosclerotic change. Images through the pelvis show a coiled dialysis catheter. This catheter enters via the left mid abdo men. There is fluid density around the catheter within the subcutaneous adipose. Tiny amount of free fluid in the abdomen and deep pelvis. The prostate is significantly enlarged and heterogeneous. Osseous structures show a sclerotic lesion involving the right pubic bone at the pubic symphysis with another small focal sclerotic lesion in the right superior ramus. There is a small sclerotic focus i n the L4 vertebra to the right. A tiny sclerotic focus also seen in the L2, L1, T12, and T11 vertebra e. IMPRESSION: 1. There are bilateral breast masses which are incompletely imaged on this exam. The left subare olar breast mass measures up to 6 cm. this is a new finding when compared to the CT chest of 12/18/17 . Recommend clinical correlation and consider biopsy as indicated. 2. Numerous hepatic cystic lesions. Numerous right renal cystic lesions. The findings suggest po lycystic kidney disease. 3. Post left nephrectomy. 4. Small umbilical hernia with fluid filled hernia sac in the subcutaneous tissues. 5. Significant prostatic hypertrophy with heterogeneous prostate. There are scattered sclerotic lesions seen in the osseous structures as described above which may be significant given the prostati c findings. Recommend clinical correlation regarding prostatic malignancy. 6. Small volume of ascites. Dialysis catheter is coiled within the pelvis. POS: [facility]
== END 2020-02-01 08:46 | disposition home or self-care (01) ==
LOC: SCSULT 08:45
PROVIDERS: ATTEND Specialist
DX: N18.6 End stage renal disease (principal); K42.9 Umbilical hernia without obstruction or gangrene; R18.8 Other ascites; K76.89 Other specified diseases of liver; N63.10 Unspecified lump in the right breast, unspecified quadrant; N63.20 Unspecified lump in the left breast, unspecified quadrant; N28.1 Cyst of kidney, acquired; N40.0 Benign prostatic hyperplasia without lower urinary tract symptoms; R93.2 Abnormal findings on diagnostic imaging of liver and biliary tract; Z90.5 Acquired absence of kidney
CPT/HCPCS: 74177; 76705; 82565

== ENCOUNTER 2020-02-08 07:15 | Outpatient (CLI) | payer MEDICARE, BC, OTHER ==
[2020-02-08 18:35] LABS: SARS-CoV-2 MS2 Positive; SARS-CoV-2 N Gene Negative; SARS-CoV-2 S Gene Negative; SARS-CoV-2 orf1ab Negative
== END 2020-02-08 07:16 | disposition home or self-care (01) ==
LOC: LABBT 07:15
PROVIDERS: ATTEND Internal Medicine Gastroenterology
DX: Z01.812 Encounter for preprocedural laboratory examination (principal); Z11.59 Encounter for screening for other viral diseases; R10.9 Unspecified abdominal pain
CPT/HCPCS: 87635; U0003

== ENCOUNTER 2020-02-13 07:34 | Day surgery (SDC) | payer MEDICARE, BC ==
[2020-02-08 08:59] VITALS: BMI 35.2
--- NOTE | 2020-02-13 07:51 | HP ---
HISTORY OF PRESENT ILLNESS: A 69-year-old gentleman with abdominal pain, nausea, and vomiting 2 weeks ago. The pain was severe to begin with. The pain was cramping in nature. He has nausea and retching. The patient has seen Dr. Oskar Carmichael recently and had an abdominal sonogram, which revealed no pathology. An abdominal CAT scan was basically negative. His symptoms markedly improved. The patient has a history of peptic ulcer in the past. The patient comes for EGD because of abdominal pain, nausea, and vomiting. ALLERGIES: CIPRO, DEMEROL, LISINOPRIL, NAMENDA AND PNEUMOCOCCAL VACCINE. SOCIAL HISTORY: He is a former smoker. MEDICAL ILLNESSES: 1. Chronic kidney disease, on peritoneal dialysis. 2. Hypertension. 3. Hyperlipidemia. 4. Diabetes mellitus. 5. Obesity. 6. Rheumatoid arthritis. 7. Colon polyp. 8. History of kidney cancer status post nephrectomy. 9. Glaucoma. 10. Gout. 11. Sleep apnea. PHYSICAL EXAMINATION: GENERAL: He is heavyset. His weight is 260 pounds. VITAL SIGNS: Pulse is 72, blood pressure 110/72. HEENT: Conjunctivae are clear. CARDIOVASCULAR SYSTEM: First and second heart sounds heard. LUNGS: Clear to auscultation. ABDOMEN: Soft. No organomegaly. Abdomen is minimally tender over the epigastric area. There is no rebound or guarding. Bowel sounds normal. ADMITTING DIAGNOSES: Abdominal pain, nausea, vomiting. PLAN: EGD. Job ID: [id number] [facility]
[2020-02-13] MEDS ORDERED: Lidocaine 1% PF 5 ML VIAL ONE (09:52)
[2020-02-13] MEDS ORDERED: PROPOFOL 200 MG/20 ML VIAL ONE (09:52)
--- NOTE | 2020-02-13 17:03 | OP ---
DATE OF PROCEDURE: 02/13/2020 PROCEDURE PERFORMED: Esophagogastroduodenoscopy with biopsy. PREOPERATIVE DIAGNOSES: Abdominal pain, nausea, and vomiting. POSTOPERATIVE DIAGNOSES: 1. Normal esophagus. 2. Multiple gastric polyps in the proximal stomach. 3. Normal duodenum. DESCRIPTION OF PROCEDURE: The patient was placed on his left lateral position and was given sedation by Anesthesia Department. A Pentax video gastroscope under direct vision passed down the oropharynx past the GE junction into the stomach and subsequently into the descending duodenum. The esophageal mucosa appears normal throughout. In the GE junction no lesion seen. The patient had multiple gastric polyps in the proximal stomach over the fundus and cardia. Biopsy obtained.. Over the gastric body, gastric antrum, incisura angularis, no lesions. The duodenal bulb, descending duodenum no pathology. The stomach decompressed and the scope removed. DISCHARGE PLANNING: This is a very pleasant male with abdominal pain, nausea, and vomiting a couple of weeks ago. He was seen by Dr. Oskar Carmichael and he had an abdominal sonogram which showed no pathology. Abdominal CAT scan was negative for any pathology. The patient underwent EGD and EGD again showed no pathology. He did have multiple gastric polyps. He is already on omeprazole once a day. He will be advised to increase omeprazole to 40 once a day. We will consider HIDA scan in the near future as the EGD showed no pathology to explain abdominal pain. Job ID: [id number] [facility]
== END 2020-02-13 11:00 | disposition home or self-care (01) ==
LOC: SDC 07:34
PROVIDERS: ATTEND Internal Medicine Gastroenterology
PROC: 0DB68ZX Excision of Stomach, Via Natural or Artificial Opening Endoscopic, Diagnostic (ICD-10-PCS; principal; 2020-02-13)
DX: K29.50 Unspecified chronic gastritis without bleeding (principal); K31.7 Polyp of stomach and duodenum; I12.9 Hypertensive chronic kidney disease with stage 1 through stage 4 chronic kidney disease, or unspecified chronic kidney disease; E11.22 Type 2 diabetes mellitus with diabetic chronic kidney disease; N18.9 Chronic kidney disease, unspecified; E78.5 Hyperlipidemia, unspecified; M06.9 Rheumatoid arthritis, unspecified; M10.9 Gout, unspecified; G47.30 Sleep apnea, unspecified; E66.9 Obesity, unspecified; Z68.35 Body mass index [BMI] 35.0-35.9, adult; Z79.82 Long term (current) use of aspirin; Z79.899 Other long term (current) drug therapy; Z87.891 Personal history of nicotine dependence; Z88.1 Allergy status to other antibiotic agents; Z88.5 Allergy status to narcotic agent; Z88.7 Allergy status to serum and vaccine; Z90.5 Acquired absence of kidney; Z99.2 Dependence on renal dialysis
CPT/HCPCS: 88305; 88312; J2001; J2704

== ENCOUNTER 2020-02-21 08:22 | Outpatient (CLI) | payer MEDICARE, BC ==
--- NOTE | 2020-02-21 12:23 | NM ---
Radionucleotide hepatobiliary scan and gallbladder ejection fraction HISTORY: Right upper quadrant pain. FINDINGS: Physiologic uptake of radiotracer throughout the liver. Uptake is seen very early in the ex am within the gallbladder and small bowel. After ingestion of fatty meal, there is prompt excretion of radiotracer from the gallbladder to the s mall bowel. Ejection fraction calculated at 47%. IMPRESSION : Normal exam.
== END 2020-02-21 08:23 | disposition home or self-care (01) ==
LOC: NM 08:22
PROVIDERS: ATTEND Internal Medicine Gastroenterology
DX: R10.9 Unspecified abdominal pain (principal)
CPT/HCPCS: 78227; A9537

== ENCOUNTER 2020-04-13 10:20 | Inpatient (IN) | payer MEDICARE, BC ==
[2020-04-13] MEDS ORDERED: Ondansetron PF 4 MG/2 ML Vial ONE (11:02)
[2020-04-13] MEDS ORDERED: Morphine 4 MG/ML VIAL ONE ×2 (11:02→14:42)
--- NOTE | 2020-04-13 11:10 | RAD ---
Chest AP view INDICATION: Abdominal pain with history of hernia COMPARISON: October 13, 2018 FINDINGS: Lungs: The lungs are clear Cardiac silhouette: Stable mild cardiomegaly Pulmonary vasculature: Normal Pleural spaces: No pleural effusion or pneumothorax is demonstrated. Upper abdomen: No abnormality seen. Osseous structures: No acute osseous abnormality. Additional findings: None. IMPRESSION: Stable cardiomegaly. No definite acute abnormality.
[2020-04-13 11:30] LABS: #Lymphocytes 0.6 thou/uL (1.20-3.40); #Monocytes 0.5 thou/uL (0.11-0.59); #Neutrophils 3.6 thou/uL (1.40-6.50); %Basophils 0.8 % (0.0-1.0); %Eosinophils 0.3 % (0.0-10.0); %Lymphocytes 13.1 % (21.0-51.0); %Monocytes 10.4 % (0.0-10.0); %Neutrophils 75.3 % (42.0-75.0); Hemoglobin 12.9 g/dL (14.0-18.0); Mean Corpuscular HGB CONC 32.2 g/dL (32.0-36.0); Mean Corpuscular Hemoglobin 32.1 pg (27.0-31.0); Mean Corpuscular Volume 99.8 fL (78.0-98.0); Mean Platelet Volume 9.8 fL (7.4-10.4); Platelet Count 141 thou/uL (130-400); Red Blood Cell (RBC) Count 4.02 mill/uL (4.70-6.10); White Blood Cell (WBC) Count 4.7 thou/uL (4.8-10.8)
[2020-04-13 11:43] LABS: INR-International Normal Ratio 1.1; PTT 35.7 sec (22.9-36.1)
[2020-04-13 11:51] LABS: ALT (SGPT) 20 U/L (8-55); AST (SGOT) 25 U/L (5-34); Albumin 3.6 g/dL (3.4-4.8); Alkaline Phosphatase 141 U/L (40-110); Anion Gap 25 mmol/L (10-20); BUN (Urea Nitrogen) 63 mg/dL (8.4-25.7); Bilirubin, Total 0.7 mg/dL (0.2-1.2); Calc. Creatinine Clearance 0 mL/min (70-130); Calcium 6.8 mg/dL (7.8-10.44); Carbon Dioxide 26 mmol/L (23-31); Chloride 92 mmol/L (98-107); Estimated GFR-MDRD 3; Glucose 111 mg/dL (83-110); Magnesium 1.5 mg/dL (1.6-2.6); Potassium 3.9 mmol/L (3.5-5.1); Protein, Total 7.6 g/dL (5.8-8.1); Sodium 139 mmol/L (136-145)
--- NOTE | 2020-04-13 11:56 | CT ---
CT OF THE ABDOMEN AND PELVIS WITH IV CONTRAST INDICATION: Abdominal Pain COMPARISON: February 01, 2020 CT the abdomen and pelvis FINDINGS: ABDOMEN: Lung bases: There is bibasilar atelectasis Liver: There are numerous hepatic cysts Gallbladder: There are multiple small gallstones layered within the gallbladder Pancreas: Normal. Adrenal glands: Normal. Spleen: Normal. Kidneys and ureters: The left kidney surgically absent. There are multiple hypodense and hyperdense c ystic abnormalities involving the right kidney. No jose elias hydronephrosis is evident. Stable prominent peripelvic cysts involving inferior pole of the right kidney. Vasculature: There are moderate vascular calcifications seen involving the visualized vasculature. Lymph nodes:No lymphadenopathy. Free fluid in abdomen:Air is mild free fluid within the left upper quadrant abdomen and right upper q uadrant of the abdomen which is nonspecific. PELVIS: Small and large bowel: There are dilated loops of small bowel which transition at the level of the um bilicus hernia containing a loop of small bowel. There is fluid in the hernia sac. Appendix:Normal Bladder: Normal. Rectal and perirectal soft tissues:Normal. Reproductive structures: Stable prostate enlargement. Free fluid in pelvis: No free fluid is evident. Lymphadenopathy pelvis: No lymphadenopathy is evident. Osseous structures: No acute osseous abnormality. No destructive osteolytic or osteoblastic lesion i s identified. There are numerous scattered punctate sclerotic lesions involving the visualized skeletal structures that appears similar to the prior exam. Soft tissues:There is a left lower quadrant peritoneal dialysis catheter. Small amount of fluid is se en adjacent to the catheter in the subcutis tissues of the left lower quadrant abdominal wall. There is persistent panniculitis of the anterior lower abdominal wall. IMPRESSION: 1. Interval development of the umbilical small bowel hernia with moderate partial small bowel obstruc tion. Surgical consultation recommended. 2. Findings of polycystic kidney disease. 3. Left lower quadrant peritoneal dialysis catheter. Small amount of fluid is seen tracking along the peritoneal dialysis catheter tract. There is persistent mild panniculitis involving anterior lower abdominal wall. 3. Stable prostate enlargement 4. Stable scattered sclerotic lesions of the lumbar spine and pelvis. 5. Cholelithiasis
[2020-04-13 12:12] LABS: CKMB 3.7 ng/mL (0-6.6)
[2020-04-13] MEDS ORDERED: Iopamidol-370 76% 500 ML 1 ML ONE (12:22)
[2020-04-13 14:11] LABS: Bilirubin Negative (Negative); Blood, Urine Moderate (Negative); Glucose, Urine (Dipstick) Negative (Negative); Ketone, Urine Negative (Negative); Leukocyte Small (Negative); Nitrite Negative (Negative); Protein, Urine (Dipstick) > or equal to 300 mg/dL (Neg-Trace); Urobilinogen 0.2 mg/dL (Less than 2)
[2020-04-13 14:13] LABS: Clarity Cloudy (Clear)
[2020-04-13 14:21] LABS: Bacteria/HPF Rare-Few HPF (None Seen); Other Microscopic Description Less than 2 mL rec'd
[2020-04-13] MEDS ORDERED: Ondansetron ODT 4 MG TAB SL PRN (16:34)
[2020-04-13] MEDS ORDERED: Acetaminophen 325 MG TAB PO PRN (16:34)
[2020-04-13] MEDS ORDERED: Ondansetron PF 4 MG/2 ML Vial IVP PRN ×2 (16:34→22:34)
[2020-04-13 18:37] VITALS: BMI 34.2
--- NOTE | 2020-04-13 19:46 | PDOC.CONS ---
- Consultation CHIEF COMPLAINT: Nausea and vomiting HISTORY OF PRESENT ILLNESS: 69-year-old male with a history of periumbilical incisional hernia presents with 1 day history of abdominal discomfort associated with nausea and vomiting. He noticed this discomfort this morning and had one episode of emesis. He reported to the emergency department, where his umbilical hernia was easily reduced. REVIEW OF SYSTEMS: General: Denies recent weight changes, fever, or chills. Eyes: Denies visual changes, pain, or irritation ENT: Denies changes in hearing, nasal discharge, or sore throat Cardiovascular: Denies chest pain, palpitations, shortness of breath, or edema. Respiratory: Denies cough, shortness of breath, or wheezing Gastrointestinal: Positive per HPI Genitourinary: Denies frequent urination or dysuria Musculoskeletal: Denies pain or restricted motion Integumentary: Denies abnormal rashes, sores, or skin lesions Neurological: Denies numbness, tingling, or weakness. Psychiatric: Denies new onset anxiety or depression Endocrine: Denies temperature intolerances, polyuria, or excessive thirst Hematologic: Denies abnormal bruising or bleeding PAST MEDICAL HISTORY: Diabetes mellitus Hypertension Chronic kidney disease on peritoneal dialysis PAST SURGICAL HISTORY: Laparoscopic inguinal hernia repair Left nephrectomy Peritoneal dialysis catheter placement Left radiocephalic fistula creation Left brachiocephalic fistula creation FAMILY HISTORY: Noncontributory SOCIAL HISTORY non smoker, denies illicit drug use, endorses occasional alcohol consumption. PHYSICAL EXAM: Vital Signs: HR 67 BP 132/71 T 97.7 RR 16 SpO2 97% on room air General: Alert and oriented, no acute distress ENT: Sclera anicteric, pupils equal and reactive, mucous membranes moist Neck: No jugular venous distention, trachea midline Cardiovascular: Regular rate and rhythm Pulmonary: Clear to auscultation Abdominal: Soft, nondistended, nontender. Small periumbilical hernia with easily reduced hernia contents. Peritoneal catheter in place Genitourinary: Normal anatomy Rectal: Deferred Integument: No abnormal rashes or lesions Musculoskeletal: No gross deformities or edema, normal range of motion. Pulsating left radiocephalic fistula. Left brachiocephalic fistula with good palpable thrill. LABORATORY: Laboratory analysis reviewed. Demonstrates a BUN of 63 and creatinine of 19 consistent with chronic kidney disease on dialysis. White blood cell count 4.7 IMAGING: CT of the abdomen and pelvis reviewed as well as radiologist interpretation. Demonstrates multiple dilated loops of small bowel with a transition point that appears to be at the periumbilical incisional hernia. ASSESSMENT: 69-year-old male with partial small bowel obstruction secondary to incisional hernia. This is likely resolved after reduction in the emergency department. PLAN: Recommend observation on the medicine service for management of his medical comorbidities as well to ensure complete resolution of his partial small bowel obstruction.
[2020-04-13] MEDS ORDERED: traMADol HCl 50 MG TAB PO PRN (22:34)
[2020-04-13] MEDS ORDERED: Zolpidem Tartrate 5 MG TAB PO PRN (22:38)
[2020-04-13] MEDS ORDERED: Ezetimibe 10 MG TAB PO SCH (22:45)
[2020-04-13] MEDS ORDERED: Brimonidine Tartrate 0.2% Ophth Soln 5 ml Bottle EA EYE SCH (22:45)
[2020-04-13] MEDS ORDERED: Furosemide 80 MG TAB PO SCH (22:45)
--- NOTE | 2020-04-13 23:06 | HP ---
CHIEF COMPLAINT ON ADMISSION: Intermittent bowel obstruction. HISTORY OF PRESENT ILLNESS: The patient is a 69-year-old male, who has had three days of increasing mid abdominal pain when it became much worse, a 06/29, he came to the emergency room for correction. He had been diagnosed with umbilical hernia by Dr. Carmichael 3 to 4 months ago and stated that he would do surgery to correct this if it ever became painful. The patient denies nausea, vomiting, diarrhea, fever, or chills. He is in moderate distress on arrival. The ER physician was able to reduce what felt like a hard incarcerated hernia and upon reduction, the patient did state he felt immediately better. He is placed in the hospital under observation for further care. It is also noted that surgical consult was obtained and agreed at the time. The patient was not a surgical candidate and that it is also noted on urinalysis that he has an acute cystitis, which may be contributing to his moderate partial small bowel obstruction. The patient did have a CT of the abdomen in the ER. This also confirmed the interval development of the umbilical small bowel hernia with partial small bowel obstruction. He is also noted to have polycystic kidney disease and peritoneal dialysis catheter tract noted. A persistent mild panniculitis involving the anterior lower abdomen is also noted as well as BPH and cholelithiasis. PAST MEDICAL HISTORY: The patient's past medical history is significant the for aforementioned polycystic kidney disease with end-stage renal disease. He has had some increasing memory loss lasting up to two days and significance is unknown. He has hypertension. He has history of diabetes, GERD, hyperlipidemia, gout, and rheumatoid arthritis. PAST SURGICAL HISTORY: The patient's past surgical history includes the peritoneal placement, left hand surgery, and a nephrectomy of one kidney. PSYCHIATRIC HISTORY: Negative. SOCIAL HISTORY: He is . Denies alcohol or drug use. No smoking history. ALLERGIES: TO CIPROFLOXACIN, EKG LEAD GLUE, LISINOPRIL, AMANTADINE MAKES HIM TOO DROWSY, DEMEROL GIVES HIM HALLUCINATIONS AND PNEUMOCOCCAL VACCINE CAUSE SEVERE ARM SWELLING AND PAIN, HIS ARM LITERALLY TURNED BLACK. MEDICATIONS ON ADMISSION: 1. Zetia 10 mg daily. 2. Tamsulosin 0.4 mg daily. 3. Calcium supplements. 4. Aspirin 81 mg daily. 5. Metoprolol tartrate 50 mg daily. 6. Lasix 80 mg b.i.d. 7. Alphagan ophthalmic drops 0.2% two drops b.i.d. 8. Epogen regularly for anemia. 9. Omeprazole 20 mg daily. REVIEW OF SYSTEMS: CONSTITUTIONAL: Denies fever, chills, or malaise. GENERAL: No discharge from eyes, ears, nose, or throat. CHEST: Denies shortness of breath or cough. CARDIOVASCULAR: Denies chest pain or palpitations. ABDOMEN: He is here for mid periumbilical pain and swelling as the hernia gotten very hard and distended. Denied nausea, vomiting, or diarrhea. : Denies dysuria or blood in urine or stool. MUSCULOSKELETAL: General pain in the main muscle groups of his legs. No new pain, swelling, edema, or erythema. NEUROLOGIC: Denies any trouble with mentation, headaches, or blurred vision. PSYCHIATRIC: Denies any depression or anxiety. PHYSICAL EXAMINATION: VITAL SIGNS: At the time of admission vital signs; blood pressure 147/81, pulse 73, respirations 16, temperature 98.1 with a pain scale 10/10 at this time due to the hard umbilical hernia. At the time of presentation in the ER saturation, O2 saturations 98% on room air. GENERAL: This is a mildly obese elderly male, alert, oriented, and cooperative. HEENT: Normocephalic and atraumatic. Pupils are equal, round, and reactive to light with arcus senilis bilaterally. TMs, nares, and pharynx are clear. NECK: Supple. Trachea midline. CHEST: Clear to auscultation. HEART: Regular rate and rhythm without murmur. ABDOMEN: Soft at the time after reduction of the umbilical hernia. ABDOMEN: Soft and nontender. : Deferred. EXTREMITIES: Without clubbing, cyanosis, or edema. SKIN: Without rashes or lesions. NEUROLOGIC: Nonfocal. Cranial nerves are intact. Mental status is baseline. Cranial nerves are intact. Sensory exam is grossly normal. Unable to test gait and cerebellar function at this time. LABORATORY DATA: Lab work thus far shows chest x-ray with stable cardiomegaly. No acute process. CT of his abdomen showed a partial small bowel obstruction, umbilical hernia, polycystic kidney disease, left lower quadrant peritoneal dialysis catheter with small fluid tracking along the peritoneal dialysis catheter tract, persistent mild panniculitis along this tract, BPH, and cholelithiasis. WBCs 4.7, hemoglobin 12.9, and hematocrit 40.1 with platelets at 141. Sodium 139, potassium 3.9, chloride 92, CO2 of 26, BUN 63, creatinine 18.8, glucose 111, lactic acid 1.1, calcium 6.8, magnesium 1.5, total bilirubin 0.7, AST 25, ALT 20, and alkaline phosphatase 141. With a CK-MB of 3.7 and troponin I 0.053. Albumin 3.6. Urinalysis showed moderate blood and small leukocyte esterase with wbc's 11 to 20. PT is 14.0 and INR 1.1 with aPTT of 35.7. ASSESSMENT: 1. The patient presented with probable small incarceration of his umbilical hernia, now reduced. 2. Chronic panniculitis. 3. Urinary tract infection. 4. Polycystic kidney disease with renal failure. PLAN: Plan will be to begin antibiotics, serially re-evaluate him. Anticipate discharge soon since pain is now controlled and reason for peritoneal findings as well as incarceration that have been dealt with. Job ID: [id number]
[2020-04-13] MEDS: cefTRIAXone\\ROCEPHIN 2 GM in Sodium Chloride 0.9% 100 ML IVPB SCH (23:19)
[2020-04-14] MEDS ORDERED: Fentanyl 100 MCG/2 ML VIAL SLOW IVP PRN (06:28)
[2020-04-14 07:00] LABS: #Lymphocytes 0.8 thou/uL (1.20-3.40); #Monocytes 0.5 thou/uL (0.11-0.59); #Neutrophils 2.6 thou/uL (1.40-6.50); %Basophils 0.5 % (0.0-1.0); %Eosinophils 1.1 % (0.0-10.0); %Lymphocytes 21.1 % (21.0-51.0); %Monocytes 11.7 % (0.0-10.0); %Neutrophils 65.6 % (42.0-75.0); Mean Corpuscular HGB CONC 32.6 g/dL (32.0-36.0); Mean Corpuscular Hemoglobin 32.5 pg (27.0-31.0); Mean Corpuscular Volume 99.7 fL (78.0-98.0); Mean Platelet Volume 9.4 fL (7.4-10.4); Platelet Count 125 thou/uL (130-400); RBC Distribution Width 13.8 % (11.5-14.5); Red Blood Cell (RBC) Count 3.69 mill/uL (4.70-6.10)
[2020-04-14 07:02] LABS: Hemoglobin A1c 5.6 % (4.0-6.0)
[2020-04-14 07:23] LABS: Anion Gap 23 mmol/L (10-20); BUN (Urea Nitrogen) 71 mg/dL (8.4-25.7); Calc. Creatinine Clearance 5 mL/min (70-130); Calcium 6.4 mg/dL (7.8-10.44); Carbon Dioxide 26 mmol/L (23-31); Cardiac Risk 7.9 (Less than 4.5); Chloride 92 mmol/L (98-107); Cholesterol 244 mg/dl (< 200 Desired); Estimated GFR-MDRD 3; Glucose 93 mg/dL (83-110); HDL Cholesterol 31 mg/dL (>60 Neg Risk); LDL Cholesterol, Calculated 184 mg/dL; Potassium 4.2 mmol/L (3.5-5.1); Sodium 137 mmol/L (136-145); Triglycerides 147 mg/dL (Less than 150)
[2020-04-14] MEDS: Furosemide 80 MG TAB PO SCH ×2 (08:39→13:00)
[2020-04-14] MEDS: Tamsulosin HCl 0.4 MG CAP PO SCH (08:39)
[2020-04-14] MEDS: Aspirin 81 mg Enteric Coated Tablet PO SCH (08:39)
[2020-04-14] MEDS: Brimonidine Tartrate 0.2% Ophth Soln 5 ml Bottle EA EYE SCH ×2 (08:40→21:01)
[2020-04-14] MEDS ORDERED: Insulin Regular 300 UNITS/3 ML VIAL SC PRN (11:42)
[2020-04-14] MEDS ORDERED: Dextrose 50% Abboject 50 ML SYRINGE IVP PRN (11:42)
[2020-04-14] MEDS ORDERED: Dextrose 5% in Water 1,000 ML IV PRN (11:42)
[2020-04-14] MEDS ORDERED: Dextrose 5 % And 0.9 % NaCl 1,000 ML IV SCH ×2 (11:45→18:43)
--- NOTE | 2020-04-14 11:51 | RAD ---
ABDOMEN 2 VIEWS: INDICATION: History of partial small bowel obstruction. COMPARISON: CT of the abdomen and pelvis dated 04/13/2020. FINDINGS: Since the comparison examination, there are moderate gas and fluid-filled distended loops of small ale wel within the left upper quadrant, central abdomen that persist. Differential air fluid levels are seen on the upright views. Lung bases are clear. There is a left lower quadrant peritoneal dialysis catheter. IMPRESSION: Findings consistent with persistent moderate partial-grade small bowel obstruction. It is difficult to determine if there has been interval reduction of the umbilical hernia seen on the comparison CT e xamination. POS: BH
[2020-04-14 12:22] LABS: SARS-CoV-2 MS2 Positive; SARS-CoV-2 N Gene Negative; SARS-CoV-2 S Gene Negative; SARS-CoV-2 by NAA Not Detected (NotDetected); SARS-CoV-2 orf1ab Negative
[2020-04-14] MEDS: Clindamycin/D5W 900 MG in Premix Bag 1 BAG IVPB SCH ×2 (13:00→20:00)
--- NOTE | 2020-04-14 18:15 | PDOC.BPN ---
- Brief Progress Note Doing much better today. Denies nausea or vomiting. Endorses flatus but denies bowel movements. Ambulating independently. Reported his hernia came out , and he was able to easily reduce it himself. EXAM: VS: T 97.8 HR 69 BP 111/71 RR 20 SpO2 [ ] General: Alert and oriented, no acute distress, resting comfortably Pulmonary: No dyspnea or difficulty breathing Abdomen: Soft, non-distended, hernia reduced CV: Regular rate and rhythm, palpable distal pulses Extremities: No edema I/O: 0 oral intake NR UOP LABORATORY / IMAGING: Laboratory analysis reviewed. Demonstrates white blood cell count of 4. Elevated creatinine 21 consistent with chronic kidney disease on dialysis. PLAN: 69-year-old male with partial small bowel obstruction due to umbilical hernia, now improved after hernia reduction. Patient being followed by Dr. Carmichael for his hernia. Recommend starting diet with discharge home if he tolerates. Consider bowel regimen daily. Will follow peripherally; please call for any further questions.
[2020-04-14] MEDS: Dextrose 5 % And 0.9 % NaCl 1,000 ML IV SCH (19:57)
--- NOTE | 2020-04-14 20:22 | CON ---
DATE OF CONSULTATION: 04/14/2020 CONSULTING PHYSICIAN: Dr. Waterman. REASON FOR CONSULTATION: End-stage renal disease evaluation. REASON FOR ADMISSION: Abdominal pain. HISTORY OF PRESENT ILLNESS: This is a 69-year-old male, with history of end-stage renal disease, on peritoneal dialysis; polycystic kidney disease; hypertension; came to the hospital with above complaints, and is being treated for bowel obstruction. Nephrology consulted for peritoneal dialysis. The patient denies any chest pain or palpitation. No nausea or vomiting. PAST MEDICAL HISTORY: Positive for end-stage renal disease, on peritoneal dialysis; hypertension; diabetes; GERD; hyperlipidemia, gout, rheumatoid arthritis. PAST SURGICAL HISTORY: Peritoneal dialysis catheter placement, left hand surgery, nephrectomy. HOME MEDICATIONS: Reviewed. ALLERGIES: MEPERIDINE, PNEUMOCOCCAL VACCINE, MEMANTINE, CIPROFLOXACIN, LISINOPRIL. SOCIAL HISTORY: No smoking, alcohol, or illicit drugs. FAMILY HISTORY: No history of kidney disease. REVIEW OF SYSTEMS: The following complete review of systems was negative, unless otherwise mentioned in the HPI or below: Constitutional: Weight loss or gain, ability to conduct usual activities. Skin: Rash, itching. Eyes: Double vision, pain. ENT/Mouth: Nose bleeding, neck stiffness, pain, tenderness. Cardiovascular: Palpitations, dyspnea on exertion, orthopnea. Respiratory: Shortness of breath, wheezing, cough, hemoptysis, fever or night sweats. Gastrointestinal: Poor appetite, abdominal pain, heartburn, nausea, vomiting, constipation, or diarrhea. Genitourinary: Urgency, frequency, dysuria, nocturia. Musculoskeletal: Pain, swelling. Neurologic/Psychiatric: Anxiety, depression. Allergy/Immunologic: Skin rash, bleeding tendency. PHYSICAL EXAMINATION: GENERAL: This is a well-built male, in no apparent distress. VITAL SIGNS: Temperature 97.9, pulse 77, respiration 18, blood pressure 120/68. HEENT: Atraumatic and normocephalic. Oral mucosa is moist. NECK: Supple. CV: S1 and S2, rate normal. RESPIRATORY: Clear. GI: Abdomen is soft. MUSCULOSKELETAL: No tenderness. No edema. DERMATOLOGIC: No skin rash. NEUROLOGIC: Alert and awake. PSYCHIATRIC: Normal mood and affect. LABORATORY DATA: Hemoglobin is 12.0. Potassium 4.2, BUN is 71, creatinine is 21.2. ASSESSMENT AND PLAN: 1. End-stage renal disease. Plan is to have peritoneal dialysis as tolerated. 2. Edema. 3. History of hypertension. 4. Chronic anemia. 5. We will reduce IV fluids to 50 mL/h. Continue Lasix. We will have PD as tolerated today. Thank you for the consult. Job ID: [id number]
[2020-04-14] MEDS: Ezetimibe 10 MG TAB PO SCH (21:02)
[2020-04-14] MEDS: cefTRIAXone\\ROCEPHIN 2 GM in Sodium Chloride 0.9% 100 ML IVPB SCH (23:00)
[2020-04-15] MEDS: Clindamycin/D5W 900 MG in Premix Bag 1 BAG IVPB SCH (04:48)
[2020-04-15 05:22] LABS: #Eosinphils 0.1 thou/uL (0.0-0.7); #Lymphocytes 0.8 thou/uL (1.20-3.40); #Monocytes 0.5 thou/uL (0.11-0.59); #Neutrophils 2.8 thou/uL (1.40-6.50); %Basophils 0.4 % (0.0-1.0); %Eosinophils 1.6 % (0.0-10.0); %Lymphocytes 19.5 % (21.0-51.0); %Monocytes 11.6 % (0.0-10.0); %Neutrophils 66.9 % (42.0-75.0); Hemoglobin 10.8 g/dL (14.0-18.0); Mean Corpuscular HGB CONC 30.8 g/dL (32.0-36.0); Mean Corpuscular Hemoglobin 30.7 pg (27.0-31.0); Mean Corpuscular Volume 99.7 fL (78.0-98.0); Mean Platelet Volume 9.1 fL (7.4-10.4); Platelet Count 128 thou/uL (130-400); RBC Distribution Width 13.7 % (11.5-14.5); Red Blood Cell (RBC) Count 3.53 mill/uL (4.70-6.10); White Blood Cell (WBC) Count 4.1 thou/uL (4.8-10.8)
[2020-04-15 05:48] LABS: Anion Gap 24 mmol/L (10-20); BUN (Urea Nitrogen) 69 mg/dL (8.4-25.7); Calc. Creatinine Clearance 5 mL/min (70-130); Calcium 6.3 mg/dL (7.8-10.44); Carbon Dioxide 23 mmol/L (23-31); Chloride 94 mmol/L (98-107); Estimated GFR-MDRD 3; Glucose 123 mg/dL (83-110); Potassium 3.7 mmol/L (3.5-5.1); Sodium 137 mmol/L (136-145)
[2020-04-15] MEDS: Furosemide 80 MG TAB PO SCH ×2 (08:32→14:17)
[2020-04-15] MEDS: Aspirin 81 mg Enteric Coated Tablet PO SCH (08:32)
[2020-04-15] MEDS: Tamsulosin HCl 0.4 MG CAP PO SCH (08:32)
[2020-04-15] MEDS: Cefdinir 300 MG CAP PO SCH ×2 (08:32→21:11)
[2020-04-15] MEDS: Clindamycin 150 MG CAP PO SCH ×3 (08:33→21:11)
[2020-04-15] MEDS: Brimonidine Tartrate 0.2% Ophth Soln 5 ml Bottle EA EYE SCH ×2 (08:34→21:11)
--- NOTE | 2020-04-15 12:47 | RAD ---
KUB INDICATION: Follow-up small bowel obstruction COMPARISON: Prior exam dated April 14, 2020 9:24 AM FINDINGS: Bowel gas: There is been some improvement of the gaseous distention involving loops of small bowel wi thin the upper abdomen. Moderately distended loops remain within the central abdomen. There is improved gas now seen at the level the colon. Lung bases: Clear. Additional findings: No suspicious calcification demonstrated. Osseous structures: No acute osseous abnormality is demonstrated. IMPRESSION: 1. Improving partial small bowel obstruction
--- NOTE | 2020-04-15 13:01 | PRG ---
DATE OF SERVICE: 04/15/2020 SUBJECTIVE: A 69-year-old gentleman, being seen for end-stage renal disease. The patient denies any nausea, vomiting, or chest pain. OBJECTIVE: General: The patient is awake and alert. Vital Signs: Afebrile, pulse 75, breathing 16, blood pressure 114/74. HEENT: Head normocephalic and atraumatic. Eyes intact, no ulcers. Nose intact, no ulcers. Ears intact, no ulcers. Neck: Supple. No JVD. Chest: Symmetrical and clear. Cardiovascular: Shows S1 and S2, no rub, no murmur. Gastrointestinal: Abdomen is soft, bowel sounds positive. Extremities: Show no edema or ulcers. Skin: Shows no rash or petechiae. Musculoskeletal: Shows no joint swelling or stiffness. Genitourinary: Shows no Nice or CVA tenderness. Neurologic: Motor intact. Cranial nerves intact. LABORATORY DATA: Reviewed. ASSESSMENT AND PLAN: 1. Stage 6 chronic kidney disease. Continue peritoneal dialysis. 2. Hypertension, stable. 3. Anemia, stable. 4. Abdominal pain management per primary team. Job ID: [id number]
[2020-04-15] MEDS: Dextrose 5 % And 0.9 % NaCl 1,000 ML IV SCH (14:17)
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
[2020-04-15] MEDS: Ezetimibe 10 MG TAB PO SCH (21:11)
[2020-04-16] MEDS: Clindamycin 150 MG CAP PO SCH (08:11)
[2020-04-16] MEDS: Aspirin 81 mg Enteric Coated Tablet PO SCH (08:11)
[2020-04-16] MEDS: Furosemide 80 MG TAB PO SCH (08:11)
[2020-04-16] MEDS: Tamsulosin HCl 0.4 MG CAP PO SCH (08:11)
[2020-04-16] MEDS: Cefdinir 300 MG CAP PO SCH (08:12)
--- NOTE | 2020-04-16 10:01 | PRG ---
DATE OF SERVICE: 04/16/2020 SUBJECTIVE: Armond Hernandez is doing well today. He had an incarcerated hernia reduced, resolving his symptoms. He will be discharged home today. In my office, we will have paperwork and the patient can call my office when he wants to schedule robot/laparoscopic mesh repair incisional hernia outpatient. At the time we do this, still need to access his left arm fistula or dialysis access. We will await his phone call. The patient is stable for discharge anytime from a surgical standpoint. Job ID: [id number]
[2020-04-16 10:59] VITALS: BP 145/83; TEMP 97.9
--- NOTE | 2020-04-16 11:24 | PRG ---
DATE OF SERVICE: 04/16/2020 SUBJECTIVE: A 69-year-old gentleman, being seen for end-stage kidney disease. The patient denied nausea, vomiting, or chest pain. OBJECTIVE: GENERAL: The patient is awake and alert. VITAL SIGNS: Afebrile, pulse 111, breathing 16, blood pressure 126/74. HEENT: Head normocephalic and atraumatic. Eyes intact, no ulcers. Nose intact, no ulcers. Ears intact, no ulcers. NECK: Supple. No JVD. CHEST: Symmetrical and clear. CARDIOVASCULAR: Shows S1 and S2, no rub, no murmur. GASTROINTESTINAL: Abdomen is soft, bowel sounds positive. EXTREMITIES: Show no edema or ulcers. SKIN: Shows no rash or petechiae. MUSCULOSKELETAL: Shows no joint swelling or stiffness. GENITOURINARY: Shows no Nice or CVA tenderness. NEUROLOGIC: Motor intact. Cranial nerves intact. LABORATORY DATA: Showed hemoglobin 10.8. ASSESSMENT AND PLAN: 1. Stage 6 chronic kidney disease. Plan hemodialysis. 2. Hypertension, stable. 3. Anemia, stable. 4. Medication based on GFR, appropriate. Job ID: [id number]
== END 2020-04-16 12:27 | disposition home or self-care (01) | DRG 393 ==
LOC: ERS 10:20 → T4-B 16:25 → OBSVTOIN 04-14 11:50
PROVIDERS: ADMIT Specialist; ATTEND Specialist
DX: K43.0 Incisional hernia with obstruction, without gangrene (principal); N18.6 End stage renal disease; I12.0 Hypertensive chronic kidney disease with stage 5 chronic kidney disease or end stage renal disease; Q61.3 Polycystic kidney, unspecified; N39.0 Urinary tract infection, site not specified; M79.3 Panniculitis, unspecified; N40.0 Benign prostatic hyperplasia without lower urinary tract symptoms; K21.9 Gastro-esophageal reflux disease without esophagitis; E78.5 Hyperlipidemia, unspecified; M10.9 Gout, unspecified; M06.9 Rheumatoid arthritis, unspecified; E11.22 Type 2 diabetes mellitus with diabetic chronic kidney disease; N18.9 Chronic kidney disease, unspecified; D63.1 Anemia in chronic kidney disease; Z79.4 Long term (current) use of insulin; Z99.2 Dependence on renal dialysis; Z90.49 Acquired absence of other specified parts of digestive tract; Z88.6 Allergy status to analgesic agent; Z88.1 Allergy status to other antibiotic agents; Z88.7 Allergy status to serum and vaccine; Z88.8 Allergy status to other drugs, medicaments and biological substances
CPT/HCPCS: 36415; 71045; 74018; 74019; 74177; 80048; 80053; 80061; 81003; 81015; 82553; 83036; 83605; 83735; 84484; 85025; 85610; 85730; 87040; 87635; 90945; 93005; 94760; 96365; 96374; 96375; 96376; G0257; G0378; J0696; J2270; J2405; J3010; J3490; Q9967; U0003

== ENCOUNTER 2020-12-19 11:18 | Day surgery (SDC) | payer MEDICARE, BC ==
[2020-12-18 13:09] VITALS: BMI 38.6
[2020-12-19] MEDS ORDERED: Bupivacaine PF 0.5% 30 ML VIAL ONE (13:39)
[2020-12-19] MEDS ORDERED: Lidocaine 1% w/Epinephrine 1:100K 20 ML VIAL ONE (13:39)
[2020-12-19] MEDS ORDERED: Heparin 10,000 UNITS/ 10 ML VIAL ONE (13:42)
[2020-12-19] MEDS ORDERED: Fentanyl 100 MCG/2 ML VIAL ONE (13:45)
[2020-12-19] MEDS ORDERED: SUGAMMADEX SODIUM 500 MG/5 ML VIAL ONE (14:03)
[2020-12-19] MEDS ORDERED: Rocuronium Bromide 10 MG/ML (10ML VIAL) ONE (14:04)
[2020-12-19] MEDS ORDERED: PHENYLEPHRINE-NS 100 MCG/ML 10 ML SYRINGE ONE (14:04)
[2020-12-19] MEDS ORDERED: Ondansetron PF 4 MG/2 ML Vial ONE (14:04)
[2020-12-19] MEDS ORDERED: PROPOFOL 200 MG/20 ML VIAL ONE (14:04)
[2020-12-19] MEDS ORDERED: Lidocaine 1% PF 5 ML VIAL ONE (14:04)
== END 2020-12-19 17:05 | disposition home or self-care (01) ==
LOC: SDC 11:18
PROVIDERS: ATTEND Specialist
PROC: 0JWT33Z Revision of Infusion Device in Trunk Subcutaneous Tissue and Fascia, Percutaneous Approach (ICD-10-PCS; principal; 2020-12-19)
DX: T85.611A Breakdown (mechanical) of intraperitoneal dialysis catheter, initial encounter (principal); K76.89 Other specified diseases of liver; I13.2 Hypertensive heart and chronic kidney disease with heart failure and with stage 5 chronic kidney disease, or end stage renal disease; E11.22 Type 2 diabetes mellitus with diabetic chronic kidney disease; I50.9 Heart failure, unspecified; N18.6 End stage renal disease; E78.5 Hyperlipidemia, unspecified; Z79.82 Long term (current) use of aspirin; Z79.899 Other long term (current) drug therapy; Z88.1 Allergy status to other antibiotic agents; Z88.5 Allergy status to narcotic agent; Z88.7 Allergy status to serum and vaccine; Z88.8 Allergy status to other drugs, medicaments and biological substances
CPT/HCPCS: J0690; J1644; J2405; J2704; J3010; S0020

== ENCOUNTER 2021-08-12 14:57 | Outpatient (CLI) | payer MEDICARE, BC | END 2021-08-12 14:58 | disposition home or self-care (01) | LOC: SCSRAD 14:57 | PROVIDERS: ATTEND Internal Medicine Rheumatology | DX: M17.0 Bilateral primary osteoarthritis of knee (principal) ==

== ENCOUNTER 2024-03-07 10:10 | Outpatient (CLI) | payer MEDICARE, BC ==
[2024-03-07 13:10] LABS: #Basophils 0.04 10x3/uL (0.0-0.2); #Eosinphils 0.13 10x3/uL (0.0-0.5); #Neutrophils 4.87 10x3/uL (1.5-8.4); %Basophils 0.5 % (0.0-2.0); %Eosinophils 1.8 % (0.0-6.0); %Lymphocytes 20.4 % (18.0-47.0); %Monocytes 10.8 % (0.0-10.0); Hematocrit 31.2 % (38.8-50.0); Hemoglobin 10.2 g/dL (13.5-17.5); Mean Corpuscular HGB CONC 32.7 g/dL (32.0-36.0); Mean Corpuscular Hemoglobin 30.7 pg (27.0-33.0); Mean Platelet Volume 9.9 fL (7.4-10.4); Platelet Count 199 10x3/uL (150-450); Red Blood Cell (RBC) Count 3.32 10x6/uL (4.32-5.72); White Blood Cell (WBC) Count 7.4 10x3/uL (3.5-10.5)
[2024-03-07 13:29] LABS: Anion Gap 19 mmol/L (10-20); BUN (Urea Nitrogen) 37 mg/dL (8.4-25.7); Calc. Creatinine Clearance 0 mL/min (70-130); Calcium 7.8 mg/dL (7.8-10.44); Carbon Dioxide 26 mmol/L (23-31); Chloride 91 mmol/L (98-107); Estimated GFR 3; Glucose 105 mg/dL (83-110); Potassium 3.3 mmol/L (3.5-5.1); Sodium 133 mmol/L (136-145)
== END 2024-03-07 10:11 | disposition home or self-care (01) ==
LOC: LABBT 10:10
PROVIDERS: ATTEND Orthopaedic Surgery Hand Surgery
DX: Z01.812 Encounter for preprocedural laboratory examination (principal); S56.419A Strain of extensor muscle, fascia and tendon of finger, unspecified finger at forearm level, initial encounter
CPT/HCPCS: 80048; 85025

== ENCOUNTER 2024-03-14 09:01 | Day surgery (SDC) | payer MEDICARE, BC ==
[2024-03-07 11:01] VITALS: BMI 34.4
[2024-03-14] MEDS ORDERED: Bupivacaine PF 0.5% 30 ML VIAL ONE ×2 (12:12→15:22)
[2024-03-14] MEDS ORDERED: Bacitracin Zinc Ointment 30 gm TUBE ONE (12:12)
[2024-03-14] MEDS ORDERED: PROPOFOL 20 ML ONE (12:40)
[2024-03-14] MEDS ORDERED: fentaNYL PF 100 MCG/2 ML SYRINGE ONE ×2 (12:40→16:03)
[2024-03-14] MEDS ORDERED: Ketamine In 0.9 % NaCl 50 MG/5 ML SYRINGE ONE (12:42)
[2024-03-14] MEDS ORDERED: CEFAZOLIN 2 GM VIAL ONE (12:48)
[2024-03-14] MEDS ORDERED: Sodium Chloride 0.9% 100 ML ONE (12:48)
[2024-03-14] MEDS ORDERED: Rocuronium Bromide 10 MG/ML (10ML VIAL) ONE (13:15)
[2024-03-14] MEDS ORDERED: Calcium Chloride 1 GM/10 ML Abboject SYRINGE ONE (13:15)
[2024-03-14] MEDS ORDERED: PHENYLEPHRINE-NS 100 MCG/ML 10 ML SYRINGE ONE ×3 (13:19→13:47)
[2024-03-14] MEDS ORDERED: ePHEDrine Sulfate 50 MG/10 ML VIAL ONE (13:25)
[2024-03-14] MEDS ORDERED: Esmolol 100 MG/10 ML VIAL ONE (14:00)
[2024-03-14] MEDS ORDERED: Vasopressin 20 UNITS/ML VIAL ONE (14:17)
[2024-03-14] MEDS ORDERED: Thrombin 5000 UNITS/5 ML VIAL ONE (14:20)
[2024-03-14] MEDS ORDERED: SUGAMMADEX SODIUM 200 MG/2 ML VIAL ONE (14:21)
== END 2024-03-14 17:50 | disposition home or self-care (01) ==
LOC: SDC 09:01
PROVIDERS: ATTEND Orthopaedic Surgery Hand Surgery
PROC: 0LB80ZZ Excision of Left Hand Tendon, Open Approach (ICD-10-PCS; principal; 2024-03-14)
PROC: 0LX80ZZ Transfer Left Hand Tendon, Open Approach (ICD-10-PCS; 2024-03-14)
DX: S66.315A Strain of extensor muscle, fascia and tendon of left ring finger at wrist and hand level, initial encounter (principal); M65.842 Other synovitis and tenosynovitis, left hand; E11.22 Type 2 diabetes mellitus with diabetic chronic kidney disease; I13.0 Hypertensive heart and chronic kidney disease with heart failure and stage 1 through stage 4 chronic kidney disease, or unspecified chronic kidney disease; I50.9 Heart failure, unspecified; N18.6 End stage renal disease; Z99.2 Dependence on renal dialysis; Z90.49 Acquired absence of other specified parts of digestive tract; Z96.653 Presence of artificial knee joint, bilateral; Z88.1 Allergy status to other antibiotic agents; Z88.5 Allergy status to narcotic agent; Z88.7 Allergy status to serum and vaccine; Z88.8 Allergy status to other drugs, medicaments and biological substances
CPT/HCPCS: 25116; 26418; J0665; J2704; J3490 ×2; 88304; C1713